=== PATIENT | male | born 1990 | race Caucasian/White ===

== ENCOUNTER 2020-05-13 09:55 | Emergency (ER) | payer MEDICAID, SELFPAY ==
[2020-05-13] VITALS (18 sets, daily range): BP systolic 116–157; BP diastolic 60–91; PULSE 53–107; RESP 12–20; TEMP 36.8; O2SAT 97–100
--- NOTE | ~2020-05-13 | XR_ITS ---
EXAMINATION: XR chest 2V DATE: 05/13/2020 10:24 INDICATION: Chest pain. TECHNIQUE: Frontal and lateral views of the chest were obtained. COMPARISON: None. FINDINGS: The chest demonstrates clear lungs without pneumonia, pleural effusion, or pneumothorax. Th e heart size is normal. IMPRESSION: 1. No acute cardiopulmonary disease. Reviewed, dictated and finalized at location A.
--- NOTE | 2020-05-13 10:01 | ECG_ITS ---
Measurements Intervals [place] Rate: 94 P: 72 VT: 129 QRS: -51 QRSD: 93 T: 48 QT: 322 QTc: 404 Interpretive Statements SINUS RHYTHM LEFT ANTERIOR FASCICULAR BLOCK BASELINE ARTIFACT- I, III, AVR, AVL, V6 ABNORMAL ECG Electronically Signed On 05-13-2020 10:05:34 CDT by Johnathon Crooks D.O.
[2020-05-13 10:18] LABS: Basophils Percent Auto 0.2 % (0.2-1.2); Eosinophils Percent Auto 0.4 % (0-4.4); Hematocrit 48.8 % (42.0-52.0); Hemoglobin 17.1 g/dL (14.0-18.0); Immature Granulocyte Absolute 0.06 K/mm3 (0.00-0.031); Immature Granulocyte Percent A 0.5 % (0-0.5); Lymphocytes Absolute Auto 2.97 K/mm3 (0.9-3.2); Lymphocytes Percent Auto 26.2 % (18.3-44.2); Mean Corpuscular Hemoglobin 32.4 pg (26-34); Mean Corpuscular Volume 92.4 fl (80-100); Mean Platelet Volume 10.6 fl (7.4-10.4); Monocytes Absolute Auto 0.7 K/mm3 (0.1-0.6); Monocytes Percent Auto 6.5 % (2.6-8.5); Neutrophils Absolute Auto 7.5 K/mm3 (1.3-6.7); Neutrophils Percent Auto 66.2 % (45.5-73.1); Platelet Count Result 235 k/mm3 (150-375); Red Blood Count 5.28 M/mm3 (4.6-6.20); White Blood Count 11.3 K/mm3 (4.5-10.0)
[2020-05-13 10:28] LABS: INR 0.9; Prothrombin Time 12.2 Seconds (11.1-14.7)
[2020-05-13 10:29] LABS: Partial Thromboplastin Time 28.2 SECONDS (22.3-36.8)
[2020-05-13 10:30] LABS: Anion Gap 12.2 mmol/L (7-16); Blood Urea Nitrogen 10 mg/dL (9-20); Calcium 9.5 mg/dL (8.4-10.2); Carbon Dioxide 25 mmol/L (22-30); Chloride 106 mmol/L (98-107); Estimated CRCL calculation 119 ml/min; Estimated Glomerular Filt Rate > 60; Glucose 106 mg/dL (75-110); Potassium 4.2 mmol/L (3.4-5.0); Sodium 139 mmol/L (137-145)
[2020-05-13 10:42] LABS: Troponin I < 0.012 ng/mL (0.000-0.034)
--- NOTE | 2020-05-13 10:48 | ED.CHESTPAIN ---
HPI - Chest Pain General Chief Complaint: Chest Pain <KEELEY Mendoza Last Filed: 05/13/20 14:04> Stated Complaint: left lower chest pain <KEELEY Mendoza Last Filed: 05/13/20 14:04> Time Seen by Provider: 05/13/20 10:12 <KEELEY Mendoza Last Filed: 05/13/20 14:04> Source: patient <KEELEY Mendoza Last Filed: 05/13/20 14:04> Mode of arrival: ambulatory <KEELEY Mendoza Last Filed: 05/13/20 14:04> Limitations: no limitations <EKELEY Mendoza Last Filed: 05/13/20 14:04> History of Present Illness HPI narrative: This is a 29-year-old male that presents the emergency department for chest pain x1 year. Reports intermittent sharp left-sided chest pain. Reports he takes Xanax sometimes with some relief. Reports this morning at work he was outside working in the heat. Reports he started to feel a little lightheaded and got some left-sided chest pain that was worse than usual which prompted him to be seen. Reports he did take Xanax this morning with some relief. Reports some mild discomfort still currently. Denies fever, cough, or shortness of breath. <KEELEY Mendoza Last Filed: 05/13/20 14:04> Related Data Home Medications: Home Medications Medication Instructions Recorded Confirmed No Home Medications 05/13/20 05/13/20 <KEELEY Mendoza Last Filed: 05/13/20 14:04> Allergies/Adverse Reactions: Allergies Allergy/AdvReac Type Severity Reaction Status Date / Time No Known Allergies Allergy Verified 05/03/16 23:12 <KEELEY Mendoza Last Filed: 05/13/20 14:04> Review of Systems Review of Systems: Narrative: CONSTITUTIONAL: Denies fever CARDIOVASCULAR: Reports chest pain. Denies palpitations, or edema. RESPIRATORY: Denies cough or dyspnea. PSYCHIATRIC: Reports anxiety <KEELEY Mendoza Last Filed: 05/13/20 14:04> All systems reviewed & are unremarkable except as noted in HPI and below <Arlene Mcclelland PA-C - Last Filed: 05/13/20 14:04> PMFSH Past Medical History Medical History: Medical History (Updated 05/13/20 @ 14:04 by Arlene Mcclelland PA-C) No active medical problems <Arlene Mcclelland PA-C - Last Filed: 05/13/20 14:04> Social History Social History: Social History (Updated 05/13/20 @ 10:51 by Arlene Mcclelland PA-C) Smoking status: Current every day smoker Substance use: never <Arlene Mcclelland PA-C - Last Filed: 05/13/20 14:04> Exam Narrative: Exam Narrative: GENERAL: Well-appearing, well-nourished, and in no acute distress. HEAD: Normocephalic, atraumatic. EYES: EOMI. NECK: Supple. No adenopathy or masses. No carotid bruits or JVD CHEST: Clear to auscultation. No respiratory distress. No wheezes rales or rhonchi HEART: Regular rate and rhythm. No murmur heard. Normal peripheral pulses. EXTREMITIES: Normal range of motion. No edema. SKIN: Warm, dry, no rash. NEURO: No focal deficits. Alert and oriented x3. PSYCH: Anxious <Arlene Mcclelland PA-C - Last Filed: 05/13/20 14:04> Course Vital Signs Vital signs: Vital Signs Temperature 98.2 F 05/13/20 10:01 Pulse Rate 92 05/13/20 10:01 Respiratory Rate 18 05/13/20 10:01 Blood Pressure 147/73 H 05/13/20 10:01 Pulse Oximetry 100 05/13/20 10:01 Temperature 98.2 F 05/13/20 10:01 Pulse Rate 59 L 05/13/20 14:00 Respiratory Rate 16 05/13/20 14:00 Blood Pressure 120/64 05/13/20 14:00 Pulse Oximetry 99 05/13/20 14:00 <Arlene Mcclelland PA-C - Last Filed: 05/13/20 14:04> Vital Signs Temperature 98.2 F 05/13/20 10:01 Pulse Rate 92 05/13/20 10:01 Respiratory Rate 18 05/13/20 10:01 Blood Pressure 147/73 H 05/13/20 10:01 Pulse Oximetry 100 05/13/20 10:01 Temperature 98.2 F 05/13/20 10:01 Pulse Rate 59 L 05/13/20 14:00 Respiratory Rate 16 05/13/20 14:00 Blood Pressure 120/64 05/13/20 14:00 Pulse Oximetry 99 05/13/20 14:00
[2020-05-13] MEDS: SODIUM CHLORIDE 0.9% IV 1,000 ML 999 ML IV CONT (10:55)
[2020-05-13] MEDS: ASPIRIN 81 MG CHEWABLE TABLET 324 MG PO (10:55)
[2020-05-13 11:44] LABS: D Dimer < 0.22 ug/mL (<0.48)
[2020-05-13 12:54] LABS: Creatine Kinase 64 U/L (55-170)
[2020-05-13 14:00] LABS: Troponin I < 0.012 ng/mL (0.000-0.034)
== END 2020-05-13 14:18 | disposition home or self-care (01) ==
PROVIDERS: Physician Assistant; Emergency Provider Emergency Medicine
DX: R07.9 Chest pain, unspecified (principal); F17.200 Nicotine dependence, unspecified, uncomplicated; I44.4 Left anterior fascicular block
CPT/HCPCS: 36415; 71046; 80048; 82550; 84484; 85025; 85380; 85610; 85730; 93005; 96361; 96374; 99284; A9270; J0131; J7030

== ENCOUNTER 2020-06-24 08:17 | Emergency (ER) | payer BC, SELFPAY ==
--- NOTE | ~2020-06-24 | XR_ITS ---
EXAMINATION: XR foot RT min 3V DATE: 06/24/2020 08:38 INDICATION: Lateral right foot pain post injury TECHNIQUE: Dorsoplantar, two oblique and lateral views of the right foot were obtained. COMPARISON: None. FINDINGS: Alignment is normal. No fracture. Joint spaces are normal. Small Achilles calcaneal spur. Soft tissue s are unremarkable. IMPRESSION: 1. No acute osseous abnormality. Reviewed, dictated and finalized at location A.
--- NOTE | 2020-06-24 08:27 | ED.LOWEXIN ---
HPI - Extremity Injury (Lower) General Chief Complaint: Extremity Injury, Lower Stated Complaint: right foot injury Time Seen by Provider: 06/24/20 08:37 Source: patient and RN notes reviewed Mode of arrival: ambulatory Limitations: no limitations History of Present Illness HPI Narrative: 29-year-old male presents with concern for right foot pain. Reports he jumped on a trampoline on Tuesday, noticed foot pain later that night. He did not have any immediate pain after jumping on the trampoline. Reports pain worsened over the weekend, he woke up in pain overnight last night. Reports swelling, tenderness to the lateral right foot. Reports he has been walking on the ball of his foot to avoid pain. Denies ankle pain. Reports the fifth digit of the right foot is painful as well. Reports elevation relieves the pain MD complaint: foot injury Injury: Right: foot Related Data Home Medications Medication Instructions Recorded Confirmed No Home Medications 05/13/20 05/13/20 Allergies Allergy/AdvReac Type Severity Reaction Status Date / Time No Known Allergies Allergy Verified 06/24/20 08:32 Review of Systems Review of Systems: Narrative: CONSTITUTIONAL: Denies malaise, chills, sweats, or fever. CARDIOVASCULAR: Denies chest pain, palpitations RESPIRATORY: Denies dyspnea. SKIN: Denies ecchymosis, reports erythema in the lateral right foot MUSCULOSKELETAL: Reports lateral right foot pain and swelling NEUROLOGIC: Denies numbness, weakness All systems reviewed & are unremarkable except as noted in HPI and below PMFSH Past Medical History Medical History (Updated 06/24/20 @ 09:01 by Oumou Martinez NP) No active medical problems Social History Social History (Updated 05/13/20 @ 10:51 by Arlene Mcclelland PA-C) Smoking status: Current every day smoker Substance use: never Comments At time of signature, agree with nursing past medical, surgical, social and family history. There is no relevant family history pertinent to the presenting complaint Exam Narrative: Exam Narrative: GENERAL: Well-appearing, well-nourished, and in no acute distress. HEAD: Normocephalic, atraumatic. EYES: PERRLA, conjunctivae clear NECK: Supple. CHEST: Speaks in full sentences. No respiratory distress. HEART: Regular rate and rhythm. Normal and equal peripheral pulses. EXTREMITIES: Right foot, digits have normal strength and sensation, normal range of motion. Right lateral edema, erythema, tenderness. No ecchymosis. 5/5 strength with ankle and digit flexion and extension. Normal sensation with sensitivity to light touch and pain. No open wounds, no skin tenting, no devitalized tissue or atrophy, no trophic changes, no obvious deformity, alignment normal, right lateral tenderness, nearby joints and structures intact. Distal pulses palpable and equal bilaterally, skin warm, dry, pink. Capillary refill less than 3 seconds. SKIN: Warm, dry, no rash. NEURO: Alert and oriented x3. PSYCH: Normal mood and affect Course Course Emergency Course: Patient is aware of diagnosis, understands and agrees to treatment plan. Anticipatory guidance given. Patient agrees to follow-up as directed and is aware of reasons to seek care at the emergency department. Portions of this record may have been created with voice recognition software Vital Signs Vital signs: Vital Signs Temperature 98.4 F 06/24/20 08:28 Pulse Rate 76 06/24/20 08:28 Respiratory Rate 16 06/24/20 08:28 Blood Pressure 144/71 H 06/24/20 08:28 Pulse Oximetry 99 06/24/20 08:28 Temperature 98.4 F 06/24/20 08:28 Pulse Rate 76 06/24/20 08:28 Respiratory Rate 16 06/24/20 08:28 Blood Pressure 144/71 H 06/24/20 08:28 Pulse Oximetry 99 06/24/20 08:28 Reviewed. Pt has been instructed to follow up with his primary care provider within the next week regarding his elevated blood pressure today. MDM - Extremity Injury (Lower) MDM Narrative Medical decision le
[2020-06-24 08:28] VITALS: BP 144/71; PULSE 76; RESP 16; TEMP 36.9; O2SAT 99
== END 2020-06-24 09:10 | disposition home or self-care (01) ==
PROVIDERS: Emergency Provider Nurse Practitioner
DX: M79.671 Pain in right foot (principal); F17.200 Nicotine dependence, unspecified, uncomplicated
CPT/HCPCS: 73630; 99213; G0463

== ENCOUNTER 2022-04-02 10:16 | Emergency (ER) | payer OTHER, SELFPAY ==
--- NOTE | ~2022-04-02 | XR_ITS ---
EXAMINATION: XR knee LT 3V DATE: 04/02/2022 10:43 INDICATION: Left knee pain. TECHNIQUE: 3 views of left knee were obtained. COMPARISON: None. FINDINGS: Bone alignment is normal. No fracture. There is mild osteoarthritis of patellofemoral cristal rtment characterized by tiny osteophytes. No knee joint effusion. IMPRESSION: 1. Mild left knee osteoarthritis. Reviewed, dictated and finalized at location B.
--- NOTE | 2022-04-02 10:17 | ED.LOWEXIN ---
HPI - Extremity Injury (Lower) General Chief Complaint: Extremity Injury, Lower Stated Complaint: Left Knee Pain Time Seen by Provider: 04/02/22 10:17 Source: patient Mode of arrival: ambulatory Limitations: no limitations History of Present Illness HPI Narrative: Mr. Bynum is a 31-year-old male patient presenting to the clinic today with complaints of left knee pain after injuring his knee Tuesday night when playing softball. He reports that he fell when going up for a ball and landed on the left knee. Has pain over the lateral knee and anterior superior knee. Has a small scabbed area to the lateral knee. Thinks he may have tweaked his knee. 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 Pain has somewhat improved however it is worse than when he first injured it. Related Data Allergies Allergy/AdvReac Type Severity Reaction Status Date / Time No Known Allergies Allergy Verified 06/24/20 08:32 Review of Systems Review of Systems: Pertinent positives per HPI. Patient denies any fever, chills, rash, headache, visual changes, dizziness, cough, runny nose, sore throat, shortness of breath, chest pain, palpitations, nausea, vomiting, diarrhea, constipation, abdominal pain, or any urinary issues. PMFSH Past Medical History Medical History No active medical problems Social History Social History Smoking status: Current every day smoker Substance use: never Comments At the time of my signature, I reviewed and agree with the nursing past medical, surgical, social, and family history. There is no relevant family history pertinent to the patient complaint. Exam Narrative: General: Well-developed, well nourished, in no apparent distress Head: Normocephalic, atraumatic. Cardio: Regular rate and rhythm, s1 and s2 normal, no murmur appreciated. Resp: Clear to auscultation bilaterally, no rhonchi, rales, wheezing or rubs. Musculoskeletal: No deformity, no swelling noted, tenderness to palpation over the lateral knee and superior anterior knee, pain with flexion of the knee as well as valgus and varus testing, no laxity noted, grossly normal range of motion, no crepitus felt, muscle strength strong and equal, peripheral pulse strong, no edema, no cyanosis, normal gait and station Course Course Emergency Course: Portions of this record may have been created with voice recognition software. Level of Care: Express Care Visit Vital Signs Vital signs: Vital signs reviewed MDM - Extremity Injury (Lower) MDM Narrative Medical decision making narrative: At the time of visit patient is resting comfortably on the exam table. X-ray was performed and was negative for any fracture or malalignment. I suspect the patient has a knee sprain and supportive measures were discussed with the patient he voiced understanding of discharge instructions and agrees to the treatment plan. Differential Diagnosis Differential diagnosis: Likely acute internal derangement of knee (Knee sprain, knee fracture) and other (Knee pain, knee contusion) Imaging Data My impression: Negative for fracture or malalignment of the left knee Radiologist's impression: [facility] [place] [address] [place] [address] XRay Report Signed Patient: Marv Bynum : 1990 MR#: [id number] Age/Sex: 31 / M Acct:[id number] Loc: [facility]? ? ADM Date: 04/02/22Attending Dr: Ordering Physician: Eladio Peace APRN Date of Service: 04/02/22 Procedure(s): XR knee LT 3V Accession Number(s): [id number] cc: Eladio Peace APRN; CEMET[employer] WARDEN PHYSICIAN~ EXAMINATION: XR knee LT 3V DATE: 04/02/2022 10:43 INDICATION: Left knee pain. TECHNIQUE: 3 views of left knee were obta
[2022-04-02 10:29] VITALS: BP 128/85; PULSE 70; RESP 16; TEMP 36.8; O2SAT 99
== END 2022-04-02 11:02 | disposition home or self-care (01) ==
LOC: EXPCOLL 10:23
PROVIDERS: Emergency Provider Nurse Practitioner Family
DX: S83.422A Sprain of lateral collateral ligament of left knee, initial encounter (principal); W19.XXXA Unspecified fall, initial encounter; Y93.64 Activity, baseball; F17.200 Nicotine dependence, unspecified, uncomplicated
CPT/HCPCS: 73562; 99213; G0463

== ENCOUNTER 2022-10-01 09:39 | Emergency (ER) | payer BC, SELFPAY ==
--- NOTE | 2022-10-01 09:46 | ED.ABDPAIN ---
HPI - Abdominal Pain General Chief Complaint: Abdominal Pain Stated Complaint: Abdominal Pain Time Seen by Provider: 10/01/22 09:50 Source: patient Mode of arrival: ambulatory Limitations: no limitations History of Present Illness HPI narrative: Mr. Bynum is a 32-year-old male patient presenting to the clinic today with complaints of lower abdominal pain and right-sided flank pain that has been ongoing for 1-2 weeks. He reports No fever or chills reports that he has had vomiting up bile in the morning. States his stomach feels sour. Had a BM this morning it was soft. He reports that he normally has runny stools so soft stools are abnormal for him. He denies any foul odor with his BMs. States he went to the chiropractor a few days ago and this helped his back pain some however he is still experiencing some back pain. The chiropractor told him that 1 of his lower dose was out and they put it back in place. Reports that the pain in his right flank is somewhat constant however it varies in intensity. He went to work this morning and was unable to fill his job due to the pain so he came to be seen in the [facility]. He denies any urinary symptoms. He denies any saddle anesthesia or loss of bowel or bladder. Rates pain current 5/10. Related Data Allergies Allergy/AdvReac Type Severity Reaction Status Date / Time No Known Allergies Allergy Verified 10/01/22 09:56 Review of Systems Review of Systems: Pertinent positives per HPI. Patient denies any fever, chills, rash, headache, visual changes, dizziness, cough, runny nose, sore throat, shortness of breath, chest pain, palpitations, diarrhea, constipation, or any urinary issues. PMFSH Past Medical History Medical History No active medical problems Social History Social History Smoking status: Current every day smoker Substance use: never Comments At the time of my signature, I reviewed and agree with the nursing past medical, surgical, social, and family history. There is no relevant family history pertinent to the patient complaint. Exam Narrative: General: Well-developed, well nourished, in no apparent distress. Head: Normocephalic, atraumatic. Cardio: Regular rate and rhythm, s1 and s2 normal, no murmur appreciated. Resp: Clear to auscultation bilaterally, no rhonchi, rales, wheezing or rubs. Abdomen: Soft, pliable, non-distended, bowel sounds present in all quadrants, mild tender to palpation over the lower abdomen, no organomegly, positive right-sided CVAT tenderness. Course Course Emergency Course: Portions of this record may have been created with voice recognition software. Level of Care: Express Care Visit Vital Signs Vital signs: Vital Signs Temperature 36.8 C 10/01/22 09:50 Pulse Rate 70 10/01/22 09:50 Respiratory Rate 18 10/01/22 09:50 Blood Pressure 132/72 10/01/22 09:50 Pulse Oximetry 100 10/01/22 09:50 Oxygen Delivery Room Air 10/01/22 09:50 Temperature 36.8 C 10/01/22 09:57 Pulse Rate 70 10/01/22 09:57 Respiratory Rate 18 10/01/22 09:57 Blood Pressure 132/72 10/01/22 09:57 Pulse Oximetry 100 10/01/22 09:57 Oxygen Delivery Room Air 10/01/22 09:57 Vital signs reviewed MDM - Abdominal Pain MDM Narrative Medical decision making narrative: At the time of visit patient is resting comfortably on exam table. patient's report and varying intensity pain to the right flank with lower abdominal pain. Unable to do x-ray in the clinic today as we do not have an x-ray tech available. Urinalysis was obtained and shows a trace of blood. I suspect that the patient may have a right ureteral stone. Offer to send the patient to the ED for further evaluation but patient declines transfer and would like to try to follow-up with a primary care provider. He does not currently have
[2022-10-01 09:50] VITALS: BP 132/72; PULSE 70; RESP 18; TEMP 36.8; O2SAT 100
[2022-10-01 09:53] VITALS: BP 132/72; PULSE 70; RESP 18; TEMP 36.8; O2SAT 100
[2022-10-01 09:57] VITALS: BP 132/72; PULSE 70; RESP 18; TEMP 36.8; O2SAT 100
== END 2022-10-01 10:25 | disposition home or self-care (01) ==
PROVIDERS: Emergency Provider Nurse Practitioner Family
DX: R11.14 Bilious vomiting (principal); R10.30 Lower abdominal pain, unspecified; F17.200 Nicotine dependence, unspecified, uncomplicated
CPT/HCPCS: 81003; 99213; G0463

== ENCOUNTER 2022-10-06 09:58 | Emergency (ER) | payer BC, SELFPAY ==
--- NOTE | ~2022-10-06 | CT_ITS ---
CT Abdomen and Pelvis with contrast. History: Lateral pain. Spiral CT of the abdomen and pelvis was performed after the administration of intravenous contrast. 1 00 cc of Omnipaque 350 was administered intravenously without complication. Dose reduction technique was used on this scan by utilizing automated exposure control and iterative reconstruction technique. The dose-length product (DLP) was 372.89 mGy-cm. Findings: Scans through the lung bases demonstrate nodular opacity along the right minor fissure, wit h internal calcifications, measuring up to approximately 1.4 x 1.1 cm in size (axial image 10 for exa mple).. The liver, spleen, pancreas, gallbladder, adrenals and kidneys are within normal limits. No evidence of aortic aneurysm. No lymphadenopathy is seen. There is no evidence of bowel obstruction. There is no evidence to suggest acute appendicitis or dive rticulitis. Images through the pelvis were performed. Urinary bladder unremarkable. Prostate gland and seminal ve sicles are unremarkable. No ascites is seen. Impression: No significant abnormalities seen in the abdomen or pelvis. Calcified nodule along the right minor fissure, as detailed above. Despite size, this has a benign ap pearance, and is probably subtly seen on prior chest x-ray dated 05/13/2020. Reviewed, dictated and finalized at location . LE DEVELOPMENT MANAGER Impression: No significant abnormalities seen in the abdomen or pelvis. Calcified nodule along the right minor fissure, as detailed above. Despite size , this has a benign appearance, and is probably subtly seen on prior chest x-ra y dated 05/13/2020.
[2022-10-06 10:01] VITALS: BP 129/74; PULSE 83; RESP 16; TEMP 36.4; O2SAT 100
[2022-10-06 11:38] LABS: Basophils Percent Auto 0.2 % (0.2-1.2); Eosinophils Absolute Auto 0.1 K/mm3 (0-0.3); Eosinophils Percent Auto 0.8 % (0-4.4); Hematocrit 48.9 % (42.0-52.0); Hemoglobin 16.7 g/dL (14.0-18.0); Immature Granulocyte Absolute 0.03 K/mm3 (0.00-0.031); Immature Granulocyte Percent A 0.3 % (0-0.5); Lymphocytes Absolute Auto 3.57 K/mm3 (0.9-3.2); Lymphocytes Percent Auto 38.7 % (18.3-44.2); Mean Corpuscular HGB Conc 34.2 g/dl (32-36); Mean Corpuscular Hemoglobin 32.5 pg (26-34); Mean Corpuscular Volume 95.1 fl (80-100); Mean Platelet Volume 9.9 fl (7.4-10.4); Monocytes Absolute Auto 0.5 K/mm3 (0.1-0.6); Monocytes Percent Auto 5.7 % (2.6-8.5); Neutrophils Percent Auto 54.3 % (45.5-73.1); Platelet Count Result 272 k/mm3 (150-375); Red Blood Count 5.14 M/mm3 (4.6-6.20); Red Cell Distribution Width 12.4 % (11.5-14.5); White Blood Count 9.2 K/mm3 (4.5-10.0)
[2022-10-06 12:14] LABS: Alanine Aminotransferase 20 U/L (6-50); Albumin Level 4.3 g/dL (3.5-5.1); Alkaline Phosphatase 61 U/L (38-126); Anion Gap 3 mmol/L (8-16); Aspartate Amino Transferase 25 U/L (17-59); Bilirubin,Total 0.6 mg/dL (0.2-1.3); Blood Urea Nitrogen 9 mg/dL (9-20); Carbon Dioxide 25 mmol/L (22-30); Chloride 107 mmol/L (98-107); Estimated CRCL calculation 135 ml/min; Estimated Glomerular Filt Rate > 60; Glucose 100 mg/dL (65-110); Lipase 53 U/L (23-300); Potassium 4.4 mmol/L (3.4-5.0); Sodium 135 mmol/L (137-145)
[2022-10-06 12:33] LABS: Add Urine Microscopic? YES; Appearance Urine Clear (Clear); Bilirubin Urine Negative (Negative); Blood Urine Trace-Intact (Negative); Color Urine Light Yellow (Yellow); Glucose Urine UA Negative (Negative); Ketones Urine Negative (Negative); Leukocyte Esterase Ur Negative LEU/UL (Negative); Nitrate Urine Negative (Negative); Protein Urine Negative (Negative); Specific Grav Ur >= 1.030 (1.001-1.035); Urobilinogen Urine 0.2 mg/dL (<2.0); pH Urine 5.5 (5.0-9.0)
[2022-10-06 12:35] LABS: Mucus Urine Moderate /lpf; RBC Urine 0-2 /hpf (0-2); WBC Urine 0-3 /hpf
[2022-10-06] MEDS: SODIUM CHLORIDE 0.9% IV 1,000 ML 999 ML IV CONT (13:04)
[2022-10-06] MEDS: ONDANSETRON INJ 4 MG/2 ML VIAL IV PUSH (13:04)
--- NOTE | 2022-10-06 13:10 | ED.ABDPAIN ---
HPI - Abdominal Pain General Chief Complaint: Abdominal Pain Stated Complaint: abd pain, sent by PCP for workup Time Seen by Provider: 10/06/22 11:27 Source: patient Mode of arrival: ambulatory Limitations: no limitations History of Present Illness HPI narrative: Patient is a 32-year-old male who presents to the ED with report of right-sided abdominal pain. Patient reports he has had pain in his right-sided abdomen, radiating around to his R lower back, for the last 6 months or so intermittently. The pain has become worse over the last 1 month. He also reports having frequent nausea and vomiting in the mornings, as well as intermittent loose stools over the last 1 month. He was seen at an urgent care recently and told he may be having kidney stones. He followed up with his primary care doctor this morning it was referred here for further evaluation and a CT scan of his abdomen. Patient denies any recent fever, cough, cold symptoms, urinary symptoms, rectal bleeding. Related Data Allergies Allergy/AdvReac Type Severity Reaction Status Date / Time No Known Allergies Allergy Verified 10/01/22 09:56 Review of Systems Review of Systems: CONSTITUTIONAL: Denies fever, chills, or sweats. ENT: Denies rhinorrhea, congestion, sore throat. CARDIOVASCULAR: Denies chest pain. RESPIRATORY: Denies cough or dyspnea. GASTROINTESTINAL: Reports right-sided abdominal pain, nausea, vomiting, and diarrhea. Denies rectal bleeding, constipation, hematemesis. GENITOURINARY: Denies dysuria or hematuria. MUSCULOSKELETAL: Reports right lower back pain. NEUROLOGIC: Denies headache, numbness, or weakness. All systems reviewed & are unremarkable except as noted in HPI and below PMFSH Past Medical History Medical History (Updated 10/06/22 @ 13:34 by Margoth William PA-C) No active medical problems Surgical History Surgical History (Updated 10/06/22 @ 13:25 by Margoth William PA-C) No pertinent past surgical history Social History Social History Smoking status: Current every day smoker Substance use: never Exam Narrative: GENERAL: Well appearing, well-nourished, non-toxic, in no acute distress. HEAD: Normocephalic, atraumatic. NECK: Supple. No adenopathy, no masses. RESPIRATORY: Airway patent, respirations nonlabored. Clear to auscultation bilaterally, no rales, rhonchi, wheezing. CARDIOVASCULAR: Regular rate and rhythm without murmurs, rubs, or gallops. Peripheral pulses 2+ and equal bilaterally. ABDOMINAL: Soft, mild tenderness in right upper quadrant, right mid abdomen and right lower lateral abdomen. Nondistended, no hepatosplenomegaly. Normoactive BS. MUSCULOSKELETAL: Moves all extremities. Strength/ROM intact without gross deformities. SKIN: Warm, dry, normal color. No rashes. NEURO: A&O X3. Speech clear. Cranial nerves II-XII grossly intact. Steady gait. No ataxic movements. PSYCHIATRIC: Appropriate mood and affect. Normal interaction. Course Vital Signs Vital signs: Vital Signs Temperature 97.6 F 10/06/22 10:01 Pulse Rate 83 10/06/22 10:01 Respiratory Rate 16 10/06/22 10:01 Blood Pressure 129/74 10/06/22 10:01 Pulse Oximetry 100 10/06/22 10:01 Oxygen Delivery Room Air 10/06/22 10:01 Temperature 97.6 F 10/06/22 10:01 Pulse Rate 83 10/06/22 10:01 Respiratory Rate 16 10/06/22 10:01 Blood Pressure 129/74 10/06/22 10:01 Pulse Oximetry 100 10/06/22 10:01 Oxygen Delivery Room Air 10/06/22 10:01 MDM - Abdominal Pain MDM Narrative Medical decision making narrative: Patient presented to ED with 6-month history of right-sided abdominal pain, sent by PCP for work-up. Intermittent N/V/D. Vitals stable upon arrival. Basic labs obtained and unremarkable. UA without signs of infection. CT scan of abdomen pelvis showing no acute intra-abdominal findings. Does show right lung nodule which appears to be chronic. Made kerline
[2022-10-06] MEDS: PANTOPRAZOLE SODIUM IV 40 MG VIAL IV PUSH (13:47)
[2022-10-06 14:15] VITALS: BP 112/74; PULSE 56; RESP 16; O2SAT 98
== END 2022-10-06 14:15 | disposition home or self-care (01) ==
PROVIDERS: Emergency Provider Physician Assistant; PCP Emergency Medicine
DX: R10.9 Unspecified abdominal pain (principal); R11.2 Nausea with vomiting, unspecified; R91.1 Solitary pulmonary nodule; F17.200 Nicotine dependence, unspecified, uncomplicated
CPT/HCPCS: 36415; 74177; 80053; 81001; 83690; 85025; 96361; 96374; 96375; 99284; C9113; J0131; J2405; J7030; Q9967

== ENCOUNTER 2023-08-25 08:01 | Emergency (ER) | payer SELFPAY ==
--- NOTE | ~2023-08-25 | XR_ITS ---
EXAMINATION: XR ankle RT min 3V INDICATION: Right ankle pain TECHNIQUE: Four views of the right ankle are obtained. COMPARISON: None available FINDINGS: Bone alignment is normal. There is no fracture. The joint spaces and soft tissues are nina l. A posterior calcaneal enthesophyte is noted. IMPRESSION: 1. No acute osseous abnormality. Reviewed, dictated and finalized at location L. TIONAL ANALYST
[2023-08-25 08:12] VITALS: BP 115/71; PULSE 82; RESP 16; TEMP 36.4; O2SAT 99
--- NOTE | 2023-08-25 08:12 | ED.LOWEXIN ---
HPI - Extremity Injury (Lower) General Chief Complaint: Extremity Injury, Lower Stated Complaint: right ankle pain Time Seen by Provider: 08/25/23 08:12 Source: patient, RN notes reviewed and old records reviewed Mode of arrival: ambulatory Limitations: no limitations History of Present Illness HPI Narrative: 33-year-old male presents to the [facility] with right ankle pain for 2 weeks. Denies any injury Patient works for the [employer]. Reports that he walks about 12 miles per day. Patient states that he is requesting a week off, discussed that we cannot give that period of time off that requires primary care provider due to [facility] paperwork. Will give 2 days. Onset (ago): week(s) (2) Related Data Allergies Allergy/AdvReac Type Severity Reaction Status Date / Time No Known Allergies Allergy Verified 08/25/23 08:12 Review of Systems Review of Systems: All systems reviewed & are unremarkable except as noted in HPI and below Constitutional: Constitutional: Reports no additional constitutional complaints Eyes: Eyes: Reports no additional eye complaints ENT: Reports system reviewed and no additional complaints, except as documented Cardiovascular: Cardiovascular: Reports no additional cardiovascular complaints, Denies chest pain and Denies dyspnea Respiratory: Respiratory: Reports no additional respiratory complaints, Denies chest congestion, Denies cough and Denies dyspnea Gastrointestinal: Gastrointestinal: Reports no additional gastrointestinal complaints, Denies abdominal pain, Denies nausea and Denies vomiting Musculoskeletal: Musculoskeletal: Reports as per HPI Integumentary/Breasts: Skin/Breast: Reports system reviewed and no additional complaints, except as docu Neurologic: Reports system reviewed and no additional complaints, except as documented Psychiatric: Psychiatric: Reports no additional psychiatric complaints Allergic/Immunologic: Allergic/Immunologic: Reports no additional allergic/immunologic complaints [facility] Past Medical History Medical History (Updated 08/25/23 @ 08:44 by Oumou Hernandez APRN) No active medical problems Surgical History Surgical History No pertinent past surgical history Social History Social History Smoking status: Current every day smoker Substance use: never Comments At the time of my signature, I reviewed and agree with the nursing past medical, surgical, social, and family history. There is no relevant family history pertinent to the patient complaint. Exam Const: General: cooperative, healthy appearing, comfortable, no acute distress, well developed, alert and well nourished Nutritional Appearance: well nourished Orientation/consciousness: patient oriented x3 Limitations: no limitations HENMT: Head: normal to inspection Ears: hearing grossly normal bilaterally and external ears normal Face/Nose/Sinus: Normal external nose present, Normal nares present, Normal nasal mucous membranes and turbinates present, normal facial exam and face symmetric Face and sinus: normal facial exam and face symmetric Eyes: General: appearance normal, both eyes and all related structures Alignment and Position: alignment normal Periorbital: periorbital findings normal Pupils: Equal, round and reactive pupils present EOM: EOMs intact bilaterally Neck: Neck: normal visual inspection, full ROM, no lymphadenopathy and no meningeal signs Chest: Chest palpation & inspection: normal inspection of the chest Resp: Effort & Inspection: normal respiratory effort and able to speak in complete sentences Cardio: Rate: regular rate Rhythm: regular rhythm Back/Spine/Pelvis: Cervical Spine: cervical ROM normal Skin: General skin exam: normal color and no rashes or lesions noted Lesions: no lesions Rashes: no rashes Wounds: no wounds Neuro: General: patient
[2023-08-25 08:13] VITALS: BP 115/71; PULSE 82; RESP 16; TEMP 36.4; O2SAT 99
== END 2023-08-25 08:50 | disposition home or self-care (01) ==
PROVIDERS: Emergency Provider Nurse Practitioner
DX: S93.401A Sprain of unspecified ligament of right ankle, initial encounter (principal); S96.911A Strain of unspecified muscle and tendon at ankle and foot level, right foot, initial encounter; F17.200 Nicotine dependence, unspecified, uncomplicated; X58.XXXA Exposure to other specified factors, initial encounter
CPT/HCPCS: 73610; 99213; G0463

== ENCOUNTER 2024-04-09 11:59 | Emergency (ER) | payer OTHER, SELFPAY ==
[2024-04-09 12:05] VITALS: BP 133/97; PULSE 72; RESP 18; TEMP 36.9; O2SAT 100
--- NOTE | 2024-04-09 12:25 | ED.DIZZY ---
HPI - Dizziness General Chief Complaint: Dizziness Stated Complaint: dizziness, headache Time Seen by Provider: 04/09/24 12:16 Source: patient and RN notes reviewed Mode of arrival: ambulatory Limitations: no limitations History of Present Illness HPI Narrative: Patient presents today complaining dizziness, headache, weakness, nausea, dry mouth. Symptoms began this morning around 8:00 a.m.. Believes he may be a little hung over from some alcohol that he drinks last night, and also symptoms may be due to the heat outside as he works for the [employer]. He took some Tylenol this morning at 6:00 a.m.. States he has not been drinking much water today so far. Related Data Home Medications Medication Instructions Recorded Confirmed No Home Medications 04/09/24 04/09/24 Allergies Allergy/AdvReac Type Severity Reaction Status Date / Time No Known Allergies Allergy Verified 04/09/24 12:18 Review of Systems Review of Systems: CONSTITUTIONAL: Denies body aches, fever, chills, or sweats. EYES: Denies visual changes, redness, or discharge. ENT: Denies rhinorrhea, congestion, sore throat, or otalgia.+ dry mouth CARDIOVASCULAR: Denies chest pain, palpitations, or edema. RESPIRATORY: Denies cough or dyspnea. GASTROINTESTINAL: Denies abdominal pain, nausea, vomiting, or diarrhea. GENITOURINARY: Denies dysuria or hematuria. SKIN: Denies rash, itching, or wounds. MUSCULOSKELETAL: Denies back pain, joint pain, or myalgia. NEUROLOGIC: Denies numbness, tingling.+ headache, weakness, dizziness PSYCH: Denies depression or anxiety. [facility] Past Medical History Medical History No active medical problems Surgical History Surgical History No pertinent past surgical history Social History Social History Smoking status: Current every day smoker Substance use: never Comments At time of signature, I have reviewed and agree with nursing past medical, surgical, social and family history unless otherwise noted. Please see nursing chart for further information. There is no relevant family history pertinent to the presenting complaint Exam Narrative: GENERAL: Well-appearing, well-nourished, and in no acute distress. HEAD: Normocephalic, atraumatic. EYES: EOMI. PERRL. No redness or drainage. Conjunctivae normal. ENT: Mucous membranes pink and moist. Nares clear. No rhinorrhea. Throat normal. Uvula midline. NECK: Normal AROM. Supple. No lymphadenopathy. CHEST: No respiratory distress. Clear to auscultation. HEART: Regular rate and rhythm. No murmur appreciated. Normal peripheral pulses. EXTREMITIES: Normal range of motion. No edema. SKIN: Warm, dry, no rash. Capillary refill normal. Normal skin turgor. NEURO: No focal deficits. Alert and oriented x3. Gait steady. PSYCH: Normal affect. No signs of depression or anxiety. Course Course Emergency Course: 1230- Patient does not wish to go to the ER for further evaluation and IV fluids. He is no longer nauseated from this morning and would like to try oral fluids and some crackers. Will also order some Tylenol for his headache. Will reassess in 30 minutes 1330- Patient resting. Was having some mild nausea. Zofran ordered. 1346- Patient states he is feeling better, dizziness has improved and he is ready for discharge. He declines prescription for Zofran. Level of Care: Express Care Visit Vital Signs Vital signs: Vital Signs Temperature 98.5 F 04/09/24 12:05 Pulse Rate 72 04/09/24 12:05 Respiratory Rate 18 04/09/24 12:05 Blood Pressure 133/97 H 04/09/24 12:05 Pulse Oximetry 100 04/09/24 12:05 Oxygen Delivery Room Air 04/09/24 12:05 Temperature 98.5 F 04/09/24 13:10 Pulse Rate 72 04/09/24 12:05 Respiratory Rate 18 04/09/24 12:05 Blood Pressure
[2024-04-09] MEDS: ACETAMINOPHEN 500 MG TABLET 1000 MG PO (12:41)
[2024-04-09 13:10] VITALS: TEMP 36.9
[2024-04-09] MEDS: ONDANSETRON HCL ODT 4 MG TABLET SUBLINGUAL (13:25)
== END 2024-04-09 13:53 | disposition home or self-care (01) ==
PROVIDERS: Emergency Provider Nurse Practitioner
DX: E86.0 Dehydration (principal); F17.200 Nicotine dependence, unspecified, uncomplicated
CPT/HCPCS: 99213; A9270; G0463